=== PATIENT | male | born 1965 | race Caucasian/White ===

== ENCOUNTER 2019-04-06 21:00 | Emergency (ER) | payer BC ==
[2019-04-06] MEDS ORDERED: Lidocaine 1% PF 5 ML VIAL ONE (21:19)
[2019-04-06] MEDS ORDERED: Bupivacaine 0.5% 10 ML VIAL ONE (21:19)
--- NOTE | 2019-04-06 21:32 | RAD ---
LEFT FINGER THREE VIEWS: 04/06/19 HISTORY: Injury. Left fifth finger pain. FINDINGS/IMPRESSION: There is a displaced fracture involving the neck of the proximal phalanx of the fifth digit/little fi nger of the left hand. POS: OFF
== END 2019-04-06 23:11 | disposition home or self-care (01) ==
LOC: ERS 21:00
DX: S62.617A Displaced fracture of proximal phalanx of left little finger, initial encounter for closed fracture (principal); I10 Essential (primary) hypertension; W18.2XXA Fall in (into) shower or empty bathtub, initial encounter
CPT/HCPCS: 26725; J2001; J3490

== ENCOUNTER 2025-04-11 16:07 | Outpatient (CLI) | payer BC | END 2025-04-11 16:08 | disposition home or self-care (01) | LOC: BICRAD 16:07 | PROVIDERS: ATTEND Family Medicine | DX: J45.21 Mild intermittent asthma with (acute) exacerbation (principal) | CPT/HCPCS: 71046 ==